=== PATIENT | female | born 1965 | race Caucasian/White ===

== ENCOUNTER 2016-10-15 07:48 | Day surgery (SDC) | payer BC ==
[~2016-10-15] VITALS: Ht 165.1 cm; Wt 71.6 kg
[~2016-10-15 07:48] MED LIST: AMBIEN5 MG PO; AMLODIPINE BESYL5 MG PO; ASPIRIN ADULT L81 M1 PO; ATENOLOL50 MG PO; VITAMIN D-31000 UNIT PO
--- NOTE | 2016-10-15 09:18 | Provider's Discharge Care Plan ---
Problem, Goal, Plan Problem List 1. S/P colonoscopy Goals: Screening Instructions: Follow up as needed, Take meds as directed
--- NOTE | 2016-10-15 09:18 | Provider's Discharge Care Plan ---
Problem, Goal, Plan Problem List 1. S/P colonoscopy Goals: Screening Instructions: Follow up as needed, Take meds as directed
--- NOTE | 2016-10-15 09:58 | OPERATIVE REPORT ---
DATE OF SURGERY: 10/15/2016 SURGEON: Manny Leung III, MD AUTHORIZATION NURSE: None. PREOPERATIVE DIAGNOSIS: 1. Screening colonoscopy POSTOPERATIVE DIAGNOSES: 1. Sigmoid diverticulosis 2. Submucosal cyst versus lipoma, distal transverse colon. PROCEDURE PERFORMED: 1. Colonoscopy with bx 2. Mary ink subumucasal tattooing transvers colon ANESTHESIA: TIVA. SURGICAL FINDINGS: Normal-appearing cecum, rare diverticula of the ascending colon, transverse colon appeared grossly normal except for the distal portion in which there was a submucosal lesion noted. This was marked using submucosal Mary ink and biopsied. The descending colon appeared grossly normal. The sigmoid had extensive diverticula and the rectal vault appeared grossly normal. SURGICAL TECHNIQUE: The patient was brought to the operating room and placed in the left lateral decubitus position, where she was administered TIVA and monitored closely by anesthesia. After proper anesthesia had taken effect, a digital rectal examination revealed no masses or stenosis. This was followed by the passage of a fiberoptic video flexible Olympus colonoscope which, with difficulty, negotiated to the cecum. The cecum was identified by anatomical landmarks and anterior abdominal wall ballottement. On withdrawing the scope the aforementioned findings noted. It was difficult to say whether this was in the distal transverse colon or the proximal descending. There was a submucosal lesion that was soft. The submucosal area was infiltrated using Mary ink for tattooing and then the lesion biopsied. The scope was withdrawn, retroflexed, good view of the rectal vault obtained. No other pathology identified. The scope was completely withdrawn. The patient tolerated the procedure well and was transferred to the recovery room in stable condition. There were no intraoperative or anesthetic complications.
[2016-10-15 10:34] VITALS: BP 110/62
== END 2016-10-15 11:08 | disposition home or self-care (01) ==
LOC: OR SRH 07:48 → SCU SRH 07:49 → OR SRH 08:30
PROVIDERS: Specialist
PROC: 0DBL8ZX Excision of Transverse Colon, Via Natural or Artificial Opening Endoscopic, Diagnostic (ICD-10-PCS; principal; 2016-10-15 09:30)
PROC: 3E0H8GC Introduction of Other Therapeutic Substance into Lower GI, Via Natural or Artificial Opening Endoscopic (ICD-10-PCS; principal; 2016-10-15 09:30)
DX: Z12.11 Encounter for screening for malignant neoplasm of colon (principal); K57.30 Diverticulosis of large intestine without perforation or abscess without bleeding; D17.79 Benign lipomatous neoplasm of other sites; I48.91 Unspecified atrial fibrillation; Z79.82 Long term (current) use of aspirin
CPT/HCPCS: 29229; 29240; 50004; 60001; 82944; 83191; 83222; 83526

== ENCOUNTER 2016-11-19 09:58 | Outpatient (CLI) | payer BC ==
--- NOTE | 2016-11-26 10:03 | DIAGNOSTIC IMAGING REPORT ---
PROCEDURE: MG BILATERAL SCREENING W/CAD INDICATION: SCREENING. Maternal aunt with a history of breast cancer. TECHNIQUE: Bilateral CC and MLO digital views. COMPARISON: Mammograms 11/19/2015, 07/02/2014 and right mammogram 11/17/2013. FINDINGS: Computer-aided detection applied. Dense pattern with diffuse scattered microcalcifications consistent with sclerosing adenosis, without appreciable change. No suspicious masses or architectural distortion. IMPRESSION: 1. Negative mammogram RESULT CODE: 2- Benign finding(s). A. A negative report should not delay biopsy if a dominant or clinically suspicious mass is present. 10-15% of cancers are not identified by x-ray. B. A negative report may reinforce clinical impression. C. Adenosis and dense breasts may obscure an underlying neoplasm. D. False positive reports average 6-10%. E.. A yearly screening mammogram is recommended. A reminder letter will be scheduled.
== END 2016-11-19 23:00 | disposition home or self-care (01) ==
LOC: MAM SRH 09:58
DX: Z12.31 Encounter for screening mammogram for malignant neoplasm of breast (principal)